=== PATIENT | female | born 1965 | race Native Hawaiian/Other Pacific Islander ===

== ENCOUNTER 2020-05-15 10:06 | Outpatient (CLI) | payer OTHER ==
[~2020-05-15 10:06] MED LIST: LISI20TA11 PO; METF500T PO; METO50TA27 PO; MOBIC15 MG PO; VENLAFAXINE150 M1 PO
== END 2020-05-15 23:36 | disposition home or self-care (01) ==
LOC: RAD 10:06
DX: M79.601 Pain in right arm (principal)

== ENCOUNTER 2020-07-17 10:33 | Outpatient (CLI) | payer OTHER | END 2020-07-17 19:04 | disposition home or self-care (01) | LOC: LAB 10:33 | PROVIDERS: ATTEND Internal Medicine | DX: N39.0 Urinary tract infection, site not specified (principal) | CPT/HCPCS: 87077; 87086; 87088; 87186 ==

== ENCOUNTER 2020-07-17 10:36 | Outpatient (CLI) | payer OTHER | END 2020-07-17 19:04 | disposition home or self-care (01) | LOC: CT 10:36 | PROVIDERS: ATTEND Internal Medicine | DX: R31.9 Hematuria, unspecified (principal) ==

== ENCOUNTER 2021-04-10 14:02 | Outpatient (CLI) | payer OTHER ==
[~2021-04-10] VITALS: Ht 154.9 cm; Wt 93.0 kg
[2021-04-10 15:13] LABS: PLATELET COUNT 211 K/uL (152-353)
[2021-04-10 15:24] LABS: POTASSIUM 4.2 mmol/L (3.6-5.2)
== END 2021-04-10 23:14 | disposition home or self-care (01) ==
LOC: INF 14:02
PROVIDERS: ATTEND Family Medicine
DX: Z23 Encounter for immunization (principal); U07.1 COVID-19; J18.9 Pneumonia, unspecified organism
CPT/HCPCS: 80053; 82728; 83735; 84100; 85027; 86140; 96365; M0244

== ENCOUNTER 2021-04-13 14:55 | Outpatient (CLI) | payer OTHER | END 2021-04-13 19:16 | disposition home or self-care (01) | LOC: RAD 14:55 | PROVIDERS: ATTEND Nurse Practitioner Family | DX: U07.1 COVID-19 (principal) ==

== ENCOUNTER 2022-01-11 12:43 | Outpatient (CLI) | payer OTHER | END 2022-01-11 18:54 | disposition home or self-care (01) | LOC: RAD 12:43 | PROVIDERS: ATTEND Physician Assistant | DX: M25.562 Pain in left knee (principal) ==

== ENCOUNTER 2022-04-27 02:27 | Outpatient (CLI) | payer OTHER | END 2022-04-27 18:57 | disposition home or self-care (01) | LOC: RAD 02:27 | PROVIDERS: ATTEND Orthopaedic Surgery | DX: M25.562 Pain in left knee (principal) ==

== ENCOUNTER 2022-10-02 20:46 | Outpatient (CLI) | payer OTHER ==
[2022-10-02 22:23] LABS: PLATELET COUNT 267 K/uL (152-353)
[2022-10-02 22:37] LABS: POTASSIUM 3.8 mmol/L (3.6-5.2)
== END 2022-10-02 22:00 | disposition home or self-care (01) ==
LOC: LAB 20:46
PROVIDERS: ATTEND Internal Medicine
DX: I10 Essential (primary) hypertension (principal); R82.998 Other abnormal findings in urine
CPT/HCPCS: 36415; 80053; 80061; 81000; 84439; 84443; 85027; 87077; 87086; 87088; 87186

== ENCOUNTER 2023-01-25 14:30 | Outpatient (CLI) | payer OTHER | END 2023-01-25 19:41 | LOC: RAD 14:30 | PROVIDERS: ATTEND Internal Medicine | DX: J40 Bronchitis, not specified as acute or chronic (principal) ==

== ENCOUNTER 2023-03-03 14:31 | Outpatient (CLI) | payer OTHER | END 2023-03-03 22:32 | disposition home or self-care (01) | LOC: RAD 14:31 | PROVIDERS: ATTEND Internal Medicine | DX: M25.512 Pain in left shoulder (principal) ==